=== PATIENT | male | born 1950 | race African-American/Black ===

== ENCOUNTER 2021-05-10 17:24 | Emergency (ER) | payer SELFPAY ==
[2021-05-10 18:07] VITALS: BP 145/95
--- NOTE | 2021-05-10 18:35 | Emergency Department Report ---
ED General Adult HPI - General Chief complaint: Dental/Oral Stated complaint: JAW NUMBNESS Time Seen by Provider: 05/10/21 18:20 Source: patient Mode of arrival: Ambulatory Limitations: Language Barrier - History of Present Illness Initial comments: 70-year-old male presents to the emergency department with complaints of nontraumatic left lower jaw pain and paresthesias starting approximately 2 weeks ago. Symptoms are worse with eating and chewing as well as drinking iced beverages. Patient was evaluated by his primary care provider, who prescribed him Augmentin and Gabapentin with limited relief. Patient has not been evaluated by a dentist. Denies fever, chills, headache, neck stiffness, slurred speech, vision changes, auditory changes. Denies all other complaints at this time. - Related Data Previous Rx's Medication Instructions Recorded Last Taken Type carBAMazepine [TEGretol] 200 mg PO DAILY #14 tablet 05/10/21 Unknown Rx ED Review of Systems ROS: Stated complaint: JAW NUMBNESS Other details as noted in HPI Other: GENERAL: Negative for fever. ENT: Positive for jaw pain and paresthesias. CARDIOVASCULAR: Negative for chest pain. PULMONARY: Negative for shortness of breath. GASTROINTESTINAL: Negative for abdominal pain. MUSCULOSKELETAL: Negative for back pain. NEUROLOGICAL: Negative for headache. INTEGUMENTARY: Negative for rash. ED Past Medical Hx - Past Medical History Previous Medical History?: Yes Hx Diabetes: Yes - Surgical History Past Surgical History?: No - Social History Smoking Status: Never Smoker Substance Use Type: None - Medications Home Medications: Home Medications Medication Instructions Recorded Confirmed Last Taken Type carBAMazepine [TEGretol] 200 mg PO DAILY #14 tablet 05/10/21 Unknown Rx ED Physical Exam - General Limitations: Language Barrier - Other Other exam information: General: Awake, appropriately interactive, no acute distress. ENT: Oral mucosa is moist. The gingiva appear normal. Diffusely poor dentition with diffuse dental caries throughout and multiple missing teeth. No fluctuance or evidence of periapical abscess. Sublingual, submental, and submandibular spaces all soft, without edema. No evidence for maxillary or buccal space abscess. No trismus. Patient is speaking in full sentences and handling secretions without difficulty. Neck: Supple. Full range of motion intact. Cardiovascular: Normal peripheral perfusion. Pulmonary: No respiratory distress. Patient is speaking normally without use of accessory muscles. Skin: No apparent rashes or lesions. Neurological: No facial asymmetry. Speech is clear. Follows commands. Patient is alert and oriented. Sensation intact. Tenderness to palpation along the V3 distribution of the left trigeminal nerve, symptoms reproducible with clenching of the jaw. Musculoskeletal: Moves all four extremities spontaneously with normal range of motion. Psych: Cooperative. Appropriate mood and affect. ED Course Vital Signs 05/10/21 18:04 Temperature 98.3 F Pulse Rate 52 L Respiratory 18 Rate Blood Pressure 145/95 O2 Sat by Pulse 97 Oximetry ED Medical Decision Making - Medical Decision Making Differential diagnosis including but not limited to: TMJ syndrome, trigeminal neuralgia, dental infection Patient presents to the emergency department w/ complaints of intermittent pain and sensory deficit localized to the V3 distribution of the left trigeminal nerve, worse with eating and chewing. Patient is afebrile, hemodynamically stable, neurologically intact, symptoms present >2 weeks. Clinical presentation suggestive of trigeminal neuralgia. No clinical evidence to suggest airway obstruction, stroke, or systemic illness warranting further diagnostic work-up on an emergent basis at this time. Patient will be discharged home with prescription for Tegretol and referred to primary care provider, dentist, and neurologist for close outpatient follow-up. Patient has been encouraged to continue previously prescribed medications as well. Patient expressed understanding and is agreeable to plan of care. Dietary modifications discussed. Strict return precautions provided. History, exam, diagnostic testing, and current condition do not suggest worrisome pathology to warrant further testing, continued ED treatment, admission, or surgical evaluation at this point. Given the low probability of a significant medical illness, it would be more likely to result in harm than benefit to perform further testing at this stage. Discussed findings, presumptive diagnosis, need for follow-up and specific signs/symptoms that should prompt immediate return to the emergency department. Instructions were explained in detail to the patient in addition to giving written discharge information. Patient expressed understanding and was given the opportunity to ask questions, all of which were satisfactorily answered prior to discharge home. Critical care attestation.: If time is entered above; I have spent that time in minutes in the direct care of this critically ill patient, excluding procedure time. ED Disposition Clinical Impression: Trigeminal neuralgia of left side of face Disposition: HOME / SELF CARE / HOMELESS Is pt being admited?: No Does the pt Need Aspirin: No Condition: Stable Instructions: Trigeminal Neuralgia Additional Instructions: Continue medications as previously prescribed. Take Tegretol as directed. Gradually advance diet slowly as tolerated. Avoid extremely hot/extremely cold foods and fluids which may worsen your symptoms. Follow-up with primary care provider, neurologist, and dentist this week. Call tomorrow to schedule appointment. See referral information below. Return to the emergency department immediately for new or worsening symptoms. Specifically, return to the emergency department immediately for headache, difficulty breathing, worsening pain/numbness, inability to swallow, or any other concerns. Prescriptions: carBAMazepine [TEGretol] 200 mg PO DAILY #14 tablet Referrals: OMKAR SAMANO MD [Staff Physician] - 3-5 Days MENA MORRISSEY MD [Referring] - 3-5 Days [facility] [Outside] - 3-5 Days [facility] [Outside] - 3-5 Days Time of Disposition: 19:02
== END 2021-05-10 20:26 | disposition home or self-care (01) ==
LOC: ED 17:24
DX: G50.0 Trigeminal neuralgia (principal); E11.8 Type 2 diabetes mellitus with unspecified complications
CPT/HCPCS: 99282